=== PATIENT | male | born 1965 | race Caucasian/White ===

== ENCOUNTER → 2024-12-29 07:15 | Outpatient (REF) | payer BC, SELFPAY | LOC: HWRCS 07:15 | PROVIDERS: ATTENDING PHYSICIAN Internal Medicine Cardiovascular Disease; FAMILY PHYSICIAN Internal Medicine | DX: I25.10 Atherosclerotic heart disease of native coronary artery without angina pectoris (principal); I25.2 Old myocardial infarction; I25.5 Ischemic cardiomyopathy | CPT/HCPCS: 78452; 93017; A9500 ==

== ENCOUNTER 2025-02-10 10:12 | Day surgery (SDC) | payer BC, SELFPAY ==
[2025-02-10] VITALS (8 sets, daily range): BP systolic 108–131; BP diastolic 70–88; BMI 27.4
--- NOTE | 2025-02-10 13:34 | W.ICD.CONTRA ---
Post ICD/ROENTGENOLOGIST-D
-
History of DC?: Yes
LV Function
Left ventricular function study result?: Ejection Fraction </= 35%
ACEI/ARB/ARNI
Patient already on ACEI/ARB/ARNI: Yes
Beta-Denys
Patient already on Beta Denys: Yes
--- NOTE | 2025-02-10 13:48 | ITS.CL.ICD ---
[employer] - ICD
Implantable Cardioverter Defibrillator
Procedure Report:
Date of Procedure: February 10, 2025
Patient : 1965
Procedures: Single-chamber ICD implantation
Indication: 1) Class 2 CHF, LVEF 30% 2) narrow QRS with primary prevention device greater than 3 months on guideline based medical therapy with ejection fraction as noted
Implants:
Pulse Generator: [employer]; Model# [id number]; Serial#�[id number]
Right Ventricular Lead: [employer]; Model# 6935; Serial# [id number]
Technique: The patient was prepped and draped in the usual fashion. Local anesthetic was applied to the left prepectoral subcutaneous tissue. A 4 inch incision was made. The left axillary vein was accessed��without difficulty. A subcutaneous pocket
was CREATED. Hemostasis was excellent. The right ventricular lead was placed at the right ventricular apex. 10 volt pacing did not capture the diaphragm. The leads were secured to the pectoralis muscle and fascia. The leads were appropriately
attached to the device. The pocket was irrigated with antibiotic solution. The device and leads were placed in the pocket and the device was secured to pectoralis muscle and facia. The incision was closed with absorbable sutures. The estimated blood
loss was minimal. There were no complications. Device based testing was performed as described below. IV contrast total: 5 cc.
Pulse fluoroscopy 3.4 minutes
System Analysis:
RV lead: R: 6.0 mV; Threshold: 0.8 V @ 0.5 ms; Impedance: 514 ohms.
Final Programming: Tachy: VT/VF:188 with monitor 150; Ed: VVI 40 bpm
Conclusion: Single-chamber ICD implant.
Recommendation: Routine post ICD care.
cc: [facility]
[2025-02-10] MEDS: ANCEF 5 IV (16:54)
--- NOTE | 2025-02-10 17:05 | W.PN.UPDATE ---
Update Note
Progress Note Update
59 yo WM s/p ICD implant (same day). He denies cp, sob, avinash diet, voiding, site c/d/i no HT< CXR no PTX, EKG SR RBBB. He will continue ASA/prasugrel. Activity restrictions reviewed. He will have incision check in 1 week at [facility]. He is for d/c home
after 5p and abx given.
== END 2025-02-10 17:11 | disposition home or self-care (01) ==
LOC: CATH 10:12
PROVIDERS: ATTENDING PHYSICIAN Internal Medicine Cardiovascular Disease; FAMILY PHYSICIAN Internal Medicine; OTHER PHYSICIAN Internal Medicine Cardiovascular Disease
DX: I11.0 Hypertensive heart disease with heart failure (principal); Z86.74 Personal history of sudden cardiac arrest; I25.5 Ischemic cardiomyopathy; I45.10 Unspecified right bundle-branch block; I25.2 Old myocardial infarction; Z95.5 Presence of coronary angioplasty implant and graft; Z79.82 Long term (current) use of aspirin; Z79.899 Other long term (current) drug therapy; Z79.84 Long term (current) use of oral hypoglycemic drugs; E11.9 Type 2 diabetes mellitus without complications; I50.9 Heart failure, unspecified
CPT/HCPCS: 33249; 71045; 93005; C1722; C1777; C1892; Q9967